=== PATIENT | male | born 1945 | race Caucasian/White ===

== ENCOUNTER → 2024-02-28 09:53 | Outpatient (REF) | payer MEDICARE, OTHER, SELFPAY | LOC: RCS 09:53 | PROVIDERS: ATTENDING PHYSICIAN Internal Medicine Cardiovascular Disease; FAMILY PHYSICIAN Physician Assistant Medical | DX: I10 Essential (primary) hypertension (principal) | CPT/HCPCS: 93306 ==

== ENCOUNTER 2024-07-31 07:33 | Day surgery (SDC) | payer MEDICARE, OTHER, SELFPAY ==
[2024-07-31] VITALS (18 sets, daily range): BP systolic 109–189; BP diastolic 46–139; BMI 23.8
[2024-07-31] MEDS: NSS 1000 IV (13:13)
--- NOTE | 2024-07-31 13:18 | ITS.CL.CATH ---
Telecom Billing Analyst - Catheterization
Cardiac Catheterization
Procedure Report:
CARDIAC CATHETERIZATION REPORT
Date of Procedure: 07/31/2024
Referring: Chino Gutierrez MD
Indication: Worsening angina with known multivessel CAD
�
HEMODYNAMIC DATA
AO: 173/62
LV: 173/12
�
LEFT VENTRICULOGRAPHY: Normal left ventricular wall motion with EF 61%
�
CORONARY ANGIOGRAPHY
Dominance: Right
Left Main: Calcified without focal stenosis
LAD: Severely calcified with mild luminal irregularities in the proximal LAD. There are tandem 60% stenoses in the mid LAD just distal to the takeoff of the first septal staff electronic warfare officer. Remainder of the LAD has mild luminal irregularities
Circumflex: The medium to large ramus intermedius branch has mild luminal disease. Focal 20% restenosis in the proximal portion of a very long stented segment extending from the proximal circumflex through the mid circumflex. There are no
high-grade areas of restenosis. Throughout the long stented segment. A small distal OM 3 is occluded at its origin and faintly fills retrograde via left to left collaterals. The circumflex terminates with a large OM 4 and a small left
posterolateral branch.
RCA: The dominant RCA is occluded at its origin. There are numerous stents throughout the RCA which do not fill with contrast. The [id number] collaterals to the RCA are faint
FloWire assessment: At the conclusion the diagnostic study, we proceeded with evaluation of the functional significance of the mid LAD disease. A 6 Argentine JL 4 guide catheter was used. Heparin was used for anticoagulation. A Freeborn wire was
advanced into the distal LAD. iFR measurements were 0.83, 0.83, and 0.83. These are all consistent with flow-limiting disease. Pullback showed the drop in Pd/Pa to be at the location of the mid LAD lesion. Accordingly, decision was made to
proceed with stenting of the LAD disease.
Angioplasty: Using the Freeborn wire, balloon angioplasty was performed with a 2.5 x 12 NC Euphora inflated to 8 rommel. We then attempted to advance a 3.25 x 15 Xience jimmy point OBINNA. The stent would not pass into the LAD. The undeployed stent was
carefully removed and a 6 Argentine guide liner was advanced into the proximal LAD. This allowed us to pass the stent to the target location in the mid LAD where it was deployed at 16 rommel then postdilated with a 3.5 NC trek to 17 rommel along the entire
length of the stent. The final angiographic result was outstanding. There were no procedural complications.
�
Closure Device: 6 Argentine Angio-Seal RFA. Of note we foolishly attempted to obtain access via the right radial artery despite there being only a faint pulse. 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 The
procedure was performed via the RFA
�
Radiation (mGy): 544
DAP (cm2.Gy): 38.0
Fluoroscopy time: 8.8 minutes
�
CONCLUSIONS
1:�Systemic hypertension
2:�Multivessel CAD as described-the RCA is chronically occluded at its origin. The mid LAD disease was flow-limiting by IFR criteria
3. Successful stenting of 60% mid LAD stenosis using 3.25 x 15 Xience jimmy point OBINNA with outstanding angiographic result
4. Recommend dual antiplatelet therapy for 12 months and continued aggressive risk factor modification efforts
5. Following transfer to the recovery room, the patient developed cognitive dysfunction. There was no motor or speech abnormality. The cognitive dysfunction resolved to baseline after approximately 60 minutes. I suspect this could be related to
the sedatives used for the procedure (Versed and fentanyl). He will be monitored overnight.
�
�
Copy to: Chino Gutierrez MD, Marlon Doty MD
�
Les Guerra MD, [facility], [facility]
[2024-07-31] MEDS: NOVOLOG vial 6 UNITS SC (13:20)
--- NOTE | 2024-07-31 13:25 | PTCARENOTE ---
Pt noted to have difficulty following commands and understanding or answering questions. MS change reported to Dr Guerra and Minerva JENKINS. Both presently at the bedside. Acucheck 253. Treated with 6 units of insulin at this time.
--- NOTE | 2024-07-31 13:29 | PTCARENOTE ---
Stroke alert called at this time after exam by Dr Guerra.
--- NOTE | 2024-07-31 13:50 | PTCARENOTE ---
Back from CT department at this time. Pt now improved to baseline. Neurologist and stroke team at the bedside
--- NOTE | 2024-07-31 13:57 | CON.NEURO4 ---
Addendum entered and electronically signed by Benigno Zamudio MD 07/31/24 17:12:
Called to return to reevaluate patient. Patient again experiencing verbal output decline with mild confusion.
Examination indicates patient is awake and alert. He is having difficulty with prolonged phrases and with continued phrase production.
Will check EEG
Initiate levetiracetam 2 g now and 1000 mg twice a day
Will continue to follow
Addendum entered and electronically signed by Benigno Zamudio MD 07/31/24 17:08:
Studies reviewed.
I have personally examined the patient. I reviewed and agree with the MARKETING COMMUNICATIONS SPECIALIST's Note.
My addenda:
Awake, alert, interactive. No acute distress.
Speech intact, initially somewhat hesitant.
Follows 2-step requests w/o difficulty. No tremor.
Extra-ocular movements grossly intact.
Facial movements full and symmetric. Hearing intact to normal conversational volume.
Normal UE movements bilaterally.
Neck: full ROM.
Chest: no dyspnea
Heart: no JVD
Ext: (-) Clubbing, (-) Cyanosis, (-) Edema
IMPRESSIONS/RECOMMENDATIONS:
Abrupt onset of change in speech and mental status following needed cardiac catheterization
Differential diagnosis includes acute ischemic stroke secondary to dislodged plaque
Check MRI of brain to better determine if acute ischemic lesion present
Continue antiplatelet agents
Goal of normotension
Continue atorvastatin
D/W patient / family / nursing
Will continue to follow patient.
Original Note:
Documented by User: Sylvia Tse NP 07/31/24 15:43
Consultation - Neurology 4
-
CONSULTING PHYSICIAN: Benigno Zamudio MD
REFERRING PHYSICIAN: Interventional Cardiology/Dr. Guerra
DICTATED BY: JASON Rashid
DATE/TIME OF REQUEST: 07/31/24
DATE/TIME OF CONSULTATION: 07/31/24
Reason for Consultation: Stroke Alert
History of Present Illness:
This is a 79-year-old right-handed male who has presented to the hospital for a scheduled cardiac cath for PCI to the LAD. Following the procedure, the patient's nurse noted around 1330 that he was unable to converse fluently, as he had been prior
to the procedure, and he seemed confused, prompting her to activate a stroke alert. CT head was obtained and is negative for any acute abnormalities. NIHSS is a 1 for mild word finding difficulty which nursing reports has improved since symptom
onset. He is not a candidate for TNK/IAT due to low NIHSS, improving symptoms. He is on DAPT with aspirin 81mg and clopidogrel 75mg daily for cardiac purposes, he was loaded with clopidogrel post-procedure. Patient denies any headache, dizziness,
vision changes, numbness, weakness, chest pain, palpitations, and shortness of breath.
Patient was previously evaluated by our inpatient Neurology service in 2018 following a cardiac cath for stenting of the mid circumflex. Post procedure in 2018 the patient was confused with word finding difficulty and diplopia. MRI brain was
obtained on 08/04/18 and demonstrated scattered bilateral cortical and white matter acute ischemic infarcts.
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
hernia
Surgical History: Cardiac cath s/p PCI to left circumflex and RCA, RTC repair, cholecystectomy, b/l cataract removal, Andrea fundoplication
Family History: Father- stroke.
Social History: Former smoker. Rare alcohol. Denies illicit drug use.
Allergies: Penicillins.
Home Medications: See below.
Review of Symptoms:
Patient denies any fever, headache, chest pain, shortness of breath, GI or symptoms.
�Per the HPI.�All systems are reviewed negative except above.
Physical Exam:
The patient is afebrile, abdomen is nondistended, breathing is unlabored, skin is warm and dry, no edema. R groin site CDI.
NIH Stroke Scale:
I performed the NIH stroke scale on the patient on 07/31/24 at 1340. The patient scored 1 points on the NIH stroke scale assessment, which were assigned as follows: See below.
Neurologic Examination:
The patient is awake, alert and oriented x 3. He is able to follow commands and answer questions appropriately. There is slight aphasia, word finding difficulty. No dysarthria. On cranial nerve assessment, pupils are 3 mm bilateral, round and
reactive to light and accommodation. Visual quintero are full. Extraocular movements are intact. Facial sensations are intact and bilaterally symmetrical, there is no facial asymmetry. Hearing is diminished bilaterally to normal conversation volume.
Tongue palate and uvula are midline. Sternocleidomastoid strengths are full bilaterally. Motor strengths are 5/5 bilateral upper and lower extremities (JOSH full ROM in RLE due to groin site) on medical research [place] scale. There is no drift or
involuntary movement noted. Babinski is absent bilaterally. There was no extinction noted on double simultaneous stimulation. Coordination is intact by finger to nose bilaterally.
Lab Results: See below.
Neuro Imaging:
1. CT Head 07/31/24: No acute intracranial pathology. Mild atrophy. Stable. ASPECT score: 10.
Differentials for the patient's presentation include:
1. Acute onset word finding difficulty and confusion. Etiology suspicious for small acute ischemic infarcts given cardiac cath/stenting this morning and similar episode following cardiac procedure in 2018 with MRI brain demonstrating acute small
embolic appearing infarcts.
Patient has the following risk factors for their symptoms: Cardiac cath/stent today, previous similar episode.
IV Tenecteplase/IAT candidacy: He is not a candidate for TNK/IAT due to low NIHSS, improving symptoms.
Recommendations:
-Continue DAPT per Cardiology.
-MRI brain noncontrast pending.
-NIHSS and neurological checks per unit guidelines.
-Provide patient with a stroke education packet.
-LDL goal <70. LDL is pending. Continue home rosuvastatin 40mg PO daily.
-Goal normoglycemia, hbA1c is pending.
-ST evaluations.
-DVT prophylaxis.
-Will follow pending results.
Discussed patient care with: Dr. Zamudio, the patient, patient's spouse
Vital Signs and Labs
-
Vital Signs and Labs:
Vital Signs
Temp Pulse Resp BP Pulse Ox
98.7 F 63 14 127/58 98
07/31/24 13:18 07/31/24 15:15 07/31/24 15:15 07/31/24 15:00 07/31/24 15:00
Medications
-
Active Medications
Generic Name Dose Route Start Last Admin
Trade Name Freq PRN Reason Stop Dose Admin
Acetaminophen 650 mg 07/31/24 12:49
Acetaminophen 325 Mg Tablet PO 08/28/24 12:48
Q4HPRN PRN
mild pain
Amlodipine Besylate 5 mg 08/01/24 08:00
Amlodipine 5 Mg Tablet PO 08/29/24 07:59
DAILY KEN
Aspirin 81 mg 08/01/24 08:00
Aspirin 81 Mg (Enteric Coated) Tablet PO 08/29/24 07:59
DAILY KEN
Clopidogrel Bisulfate 75 mg 08/01/24 08:00
Clopidogrel 75 Mg Tablet PO 08/29/24 07:59
DAILY KEN
Dextrose 12.5 grams 07/31/24 12:51
Dextrose 50% (0.5 Grams/Ml) 50 Ml Syringe IV 08/01/24 00:51
PROCEDURE-PRN PRN
glucose less than 70 mg/dL
Protocol
Dextrose 12.5 grams 07/31/24 14:50
Dextrose 50% (0.5 Grams/Ml) 50 Ml Syringe IV 08/28/24 14:49
[id number] PRN
hypoglycemia
Protocol
Famotidine 20 mg 07/31/24 20:00
Famotidine 20 Mg Tablet PO 08/28/24 19:59
BID KEN
Glucagon 1 mg 07/31/24 14:50
Glucagon 1 Mg Vial IM 08/28/24 14:49
PRN PRN
hypoglycemia
Protocol
Sodium Chloride 1,000 mls @ 0 mls/hr 07/31/24 13:00 07/31/24 13:13
Nss IV 08/01/24 12:50 1,000 mls
PER PROTOCOL KEN Administration
Protocol
Per Protocol
Insulin Aspart 0 units 07/31/24 12:51 07/31/24 13:20
Insulin Aspart (Novolog) 100 Units/1 Ml 10 Ml Vial SC 08/01/24 00:51 6 units
PROCEDURE- Q2H PRN PRN Administration
glucose 180 mg/dL or greater
Protocol
Insulin Aspart 0 units 07/31/24 16:30
Insulin Aspart Moderate Resistance 300 Units/3 Ml Pen.Injctr SC 08/28/24 16:29
AC KEN
Protocol
Metoprolol Tartrate 12.5 mg 07/31/24 20:00
Metoprolol 25 Mg Regular Release Tablet PO 08/28/24 19:59
BID KEN
Non-Formulary Medication 14 unit 07/31/24 20:00
Insulin Glargine [Lantus Solostar U-100 Insulin] SC 08/28/24 19:59
BID KEN
Non-Formulary Medication 8 unit 07/31/24 16:00
Insulin Lispro SC 08/28/24 15:59
TID KEN
Pantoprazole Sodium 40 mg 08/01/24 08:00
Pantoprazole 40 Mg Delayed Release Tablet PO 08/29/24 07:59
DAILY KEN
Ramipril 10 mg 08/01/24 08:00
Ramipril (Altace) 10 Mg Capsule PO 08/29/24 07:59
DAILY KEN
Rosuvastatin Calcium 40 mg 07/31/24 18:00
Rosuvastatin (Crestor) 40 Mg Tablet PO 08/28/24 17:59
QPM KEN
Home Medications
�Medication �Instructions �Recorded
aspirin 81 mg tablet,delayed 81 mg PO DAILY 09/08/12
release
cinnamon bark 500 mg capsule 1,000 mg PO DAILY 05/25/16
(Cinnamon)
vitamin A 2,400 mcg capsule 8,000 unit PO DAILY 10/08/16
nitroglycerin 0.4 mg sublingual 0.4 mg sublingual [id number] PRN 10/09/16
tablet chest pain ##25
pantoprazole 40 mg tablet,delayed 40 mg PO DAILY ##90 10/09/16
release
metoprolol tartrate 25 mg tablet 12.5 mg PO BID 07/31/18
amlodipine 5 mg tablet 5 mg PO DAILY #30 tabs 08/06/18
rosuvastatin 40 mg tablet 40 mg PO QPM ##30 08/06/18
acetaminophen 500 mg tablet 500 mg PO Q6HPRN PRN mild 06/10/20
(Tylenol Extra Strength) pain/fever
clopidogrel 75 mg tablet 75 mg PO DAILY #90 tabs 06/10/20
famotidine 20 mg tablet 20 mg PO BID 06/10/20
multivitamin with folic acid 400 1 tab PO DAILY 06/10/20
mcg tablet (Tab-A-Janet)
ramipril 10 mg capsule 10 mg PO DAILY 06/10/20
insulin glargine 100 unit/mL (3 14 unit SC BID 07/31/24
mL) subcutaneous pen (Lantus
Solostar U-100 Insulin)
insulin lispro 100 unit/mL 8 unit SC TID 07/31/24
subcutaneous pen
nitroglycerin 0.4 mg sublingual 0.4 mg sublingual [id number] PRN 07/31/24
tablet chest pain #25 tabs
NIH Stroke Score
Subsequent NIH Scale
Date of Subsequent NIH Scale: 07/31/24
Time of Subsequent NIH Scale: 13:40
NIH Stroke Score
Level of Consciousness: 0 - Alert
LOC Questions: 0-Answers both correctly
LOC Commands: 0-Performs both correctly
Best Horizontal Gaze: 0-Normal
Visual Quintero: 0=Normal, no visual loss
Facial Palsy: 0=Normal, symmetrical
Motor - Right Arm: 0=No drift 10 seconds
Motor - Left Arm: 0=No drift 10 seconds
Motor - Right Le-No drift 5 seconds
Motor - Left Le-No drift 5 seconds
Limb Ataxia: 0-Absent
Sensation: 0-Normal
Best Language: 1-Mild aphasia
Dysarthria: 0-Normal
Extinction and Inattention: 0-No abnormality
Total Score:: 1
Modified [place] (mRS) Score
Modified Kylie Scale (mRS): No significant disability. Able to carry out usual activities.
Score: 1
Alteplase Contraindication
Inclusion and Exclusion criteria reviewed: Yes

Documented by User: Benigno Zamudio MD 07/31/24 16:57
NIH Stroke Score
NIH Stroke Score
Total Score:: 1
Modified Kylie (mRS) Score
Score: 1
--- NOTE | 2024-07-31 13:58 | PTCARENOTE ---
Glucose checked before stroke alert. 6 units aspart given for glucose of 253 . [address] after [address] from [address] scan. Speech normal, swallowing water well without issue.
--- NOTE | 2024-07-31 14:24 | W.PN.UPDATE ---
Update Note
Progress Note Update
CTSP by RN post PCI LAD pt having difficultly with word finding and following basic commands. VSS, IMELDA, Miya4. Dr. Guerra at bedside to evaluate pt and called [facility] alert, Neurology team (Dr. Zamudio) at bedside. CT head completed no acute changes,
MRI ordered. He will be admitted o/n for observation. After 2 hours his symptoms have resolved. Continue to monitor closely.
[2024-07-31 14:35] LABS: ACT-LR - POC > 397 Seconds (116-155)
--- NOTE | 2024-07-31 16:09 | CM ---
CM following for DC planning needs.
Met w/ patient and spouse at bedside to complete initial assessment.
Pt. reports that he resides in a private, 2 story home w/ spouse. Functionally, patient is indep. at baseline w/ ADls, mobility without the use of any assisted device.
Pt. has RX plan and uses [facility] on [address]
Anticipated DC plan is for home without needs.
CM to follow.
[2024-07-31 16:22] LABS: Glucose - Point of Care 163 mg/dl (70-99)
--- NOTE | 2024-07-31 16:30 | PTCARENOTE ---
Pt noted to be confused w/ aphasia by pt's . A rapid response was called at 1618.
--- NOTE | 2024-07-31 16:37 | PTCARENOTE ---
Received pt post cath. VSS. Pr AAO x3, NIHSS 0. Attempted right radial site w/ dry dressing intact. Right groin dressing clean, dry and intact. Pt's at bedside. Orders noted.
[2024-07-31] MEDS: NOVOLOG FLEXPEN 8 UNITS SC (16:48)
[2024-07-31] MEDS: NOVOLOG FLEXPEN-MODERATE RESISTANCE 1 UNITS SC (16:49)
--- NOTE | 2024-07-31 16:59 | W.PN.UPDATE ---
Update Note
Progress Note Update
CTSP by RN, RR and stroke alert called again. Pt had return of aphasia and difficulty with word finding. Dr. Guerra and Dr. Zamudio at bedside, treated with Keppra for possible seizure activity. Plan for MRI tonight, continue to monitor closely with
frequent neuro checks. at bedside and updated plan.
[2024-07-31] MEDS: KEPPRA 2000 MG IV (17:01)
--- NOTE | 2024-07-31 17:36 | W.PN.UPDATE ---
Update Note
Progress Note Update
Second episode of speech problem post PCI. NO motor dysfunction but trouble with word finding and clear diction. Dr Zamudio reassesed with me. No role for heparin. Already on DAPT and statin. Continue to follow. CT OK but MRI to be done.
[2024-07-31] MEDS: VITAMIN B1 100 MG PO (17:45)
[2024-07-31] MEDS: CRESTOR 40 MG PO (17:45)
--- NOTE | 2024-07-31 19:21 | RR ---
A Rapid Response was called on this patient, please see Rapid Response form. A rapid response was called at 1618.
--- NOTE | 2024-07-31 19:22 | PTCARENOTE ---
Pt to MRI at 1918 via stretcher. Pt accompanied by DIANA Bautista RN.
[2024-07-31] MEDS: TYLENOL 650 MG PO (21:09)
[2024-07-31] MEDS: KEPPRA 1000 MG PO (21:10)
[2024-07-31] MEDS: PEPCID 20 MG PO (21:11)
[2024-07-31] MEDS: LOPRESSOR 12.5 MG PO (21:11)
[2024-07-31 21:25] LABS: Glucose - Point of Care 135 mg/dl (70-99)
[2024-07-31] MEDS: LANTUS 0.14 UNITS SC (21:25)
--- NOTE | 2024-07-31 23:00 | PTCARENOTE ---
Pt received at change of shift. MANUFACTURING HELPER at bedside to escort pt to MRI. Bedside handoff report completed with MANUFACTURING HELPER and RN from previous shift. Neuro assessment and NIH completed. Neuro intact, NIH scale 1. SR with bigeminy and BBB on tele. Pt
transported by MANUFACTURING HELPER to MRI and pt off tele briefly while in MRI machine. Pt back to unit at 2024. MANUFACTURING HELPER reported no issues during transport. At 2099 pt w/ complaints of a headache, Tylenol administered per orders. Pt reported tylenol resolved
headache pain completely. Aphasia and confusion completely resolved since returning from MRI. Pt ambulating with standby assist to bathroom. Can make needs known. Call yuan within reach.
[2024-08-01 03:49] VITALS: BP 151/74
[2024-08-01 04:21] LABS: Hematocrit 40.6 % (39.0-52.0); Hemoglobin 14.5 g/dL (13.0-18.0); Mean Corp Hgb Conc. 35.7 g/dL (33.0-37.0); Mean Corpuscular Hgb 32.4 pg (27.0-31.0); Mean Corpuscular Volume 90.8 fL (80.0-94.0); Mean Platelet Volume 11.2 fL (7.4-10.4); Platelet Count 144 10^3/uL (130-400); Red Blood Cell Count 4.47 10^6/uL (4.70-6.10); Red Cell Dist. Width 13.2 % (11.5-14.5); White Blood Cell Count 6.7 10^3/uL (4.8-10.8)
[2024-08-01 04:30] LABS: Blood Urea Nitrogen 15 mg/dl (9-20); Calcium 9.4 mg/dl (8.4-10.2); Carbon Dioxide 27 mmol/L (22-30); Chloride 100 mmol/L (98-107); Estimated Creatinine Clearance 68 ml/min; Glucose 150 mg/dl (70-99); HDL Cholesterol 41 mg/dl; LDL Cholesterol, Calculated 36 mg/dl; Potassium 4.3 mmol/L (3.5-5.1); Sodium 138 mmol/L (135-145); Total Cholesterol 98 mg/dl (50-199); Triglyceride 105 mg/dl (10-149); Very Low Density Lipoprotein 21 mg/dl (0-30); eGFR > 60.00
[2024-08-01 05:49] LABS: Magnesium 2.2 mg/dl (1.6-2.3)
[2024-08-01 06:00] VITALS: BMI 22.9
[2024-08-01 07:25] VITALS: BP 154/74
[2024-08-01 07:28] LABS: Glucose - Point of Care 174 mg/dl (70-99)
[2024-08-01] MEDS: NOVOLOG FLEXPEN 8 UNITS SC (08:25)
[2024-08-01] MEDS: NOVOLOG FLEXPEN-MODERATE RESISTANCE 1 UNITS SC (08:25)
[2024-08-01] MEDS: NORVASC 5 MG PO (08:26)
[2024-08-01] MEDS: PEPCID 20 MG PO (08:26)
[2024-08-01] MEDS: LOPRESSOR 12.5 MG PO (08:26)
[2024-08-01] MEDS: PROTONIX 40 MG PO (08:26)
[2024-08-01] MEDS: KEPPRA 1000 MG PO (08:26)
[2024-08-01] MEDS: PLAVIX 75 MG PO (08:26)
[2024-08-01] MEDS: ALTACE 10 MG PO (08:26)
[2024-08-01] MEDS: ASPIR LOW (ENTERIC COATED) 81 MG PO (08:26)
[2024-08-01] MEDS: VITAMIN B1 100 MG PO (08:26)
[2024-08-01] MEDS: LANTUS 0.14 UNITS SC (08:27)
--- NOTE | 2024-08-01 09:27 | W.PN.NEURO.1 ---
Today's Communication / Plan
-
would change from Levetiracetam to Topiramate 25 mg BID based on symptoms and lack of clarity regarding seizure
eventual outpatient EEG
continue aspirin and clopidogrel as outpatient
Neuro Assessment/Plan
Assessment
Acute onset of confusion
Differential diagnosis includes migraine with aura based on routine headaches.
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
Plan
would change from Levetiracetam to Topiramate 25 mg BID based on symptoms and lack of clarity regarding seizure
eventual outpatient EEG
continue aspirin and clopidogrel as outpatient
Will follow as outpatient.
Subjective/Objective
Subjective Data
Date of Service: August 01, 2024
Had headache at 21:00 yesterday. Has usual photophobia and trouble with visual changes.
Objective Data
Vital Signs
Temp Pulse Resp BP Pulse Ox
36.7 C 60 18 151/74 98
08/01/24 07:20 08/01/24 04:00 08/01/24 07:20 08/01/24 03:49 08/01/24 07:20
Lab Results
08/01/24 03:47
08/01/24 03:47
Sodium 138 mmol/L (135-145) 08/01/24 03:47
Potassium 4.3 mmol/L (3.5-5.1) 08/01/24 03:47
BUN 15 mg/dl (9-20) 08/01/24 03:47
Glucose 150 mg/dl (70-99) H 08/01/24 03:47
Calcium 9.4 mg/dl (8.4-10.2) 08/01/24 03:47
LDL Cholesterol, Calc 36 mg/dl 08/01/24 03:47
Patient Allergies
Penicillins Allergy (Verified 07/31/24 08:14)
Hives
Review of Systems
-
History Source: Patient
All other systems: Reviewed and negative
Neuro: Headache; Negative Dizzy
Physical Exam
-
General: No Apparent Distress and Appears Stated Age
Eyes: Round OU, [place] Conjunctivae and No Ptosis
HEENT: Anicteric and Moist Mucous Membranes
Neck: Full Range of Motion
Respiratory: No Dyspnea
Cardiac: No JVD
GI: Non-distended
Skin: Unremarkable
Extremities: No Clubbing, No Cyanosis and No Edema
Psych: Intact Judgement/Insight
Extended Neurological Exam
Mood & Affect: Mood Unremarkable and Affect Unremarkable
Attention Span & Concentration: Awake, Alert and Interactive
Memory: Unremarkable
Tremor: Hand Tremor Absent and Head Tremor Absent
Speech: Quality Unremarkable and Quantity Unremarkable
Cranial Nerve II: Left Eye: Pupillary Size Unremarkable and Visual Quintero Grossly Intact
Cranial Nerve II: Right Eye: Pupillary Size Unremarkable and Visual Quintero Grossly Intact
Cranial Nerves III, IV, : Extraocular Movement: Grossly Intact
Cranial Nerve VII: Facial Symmetry: Normal Facial Symmetry
Cranial Nerve VIII: Hearing: Unremarkable Hearing to Normal Conversational Volume
Cranial Nerve XI: Shoulder Shrug: Unremarkable
Muscle Strength, Overall: Spontaneously Moves (All extremities)
Muscle Bulk & Tone: Bulk Unremarkable and Tone Unremarkable
Touch Sensation: Unremarkable
Coordination: [id number] Testing Unremarkable
Data Reviewed
-
MRI Head: Report Reviewed and Image Reviewed
EEG: Ordered
Labs: Report Reviewed
Reviewed with: Physician, Patient and Family
Old Records: Summarized
Past History
Past History
ED Past Medical History: CAD, GERD, HTN, Hypercholesterolemia, NIDDM, Other (Lumbar disc disease with sciatica, episode change in mental status) and Other (vertigo x 2)
ED Past Surgical History: Cholecystectomy, Orthopedic (Right rotator cuff repair, epidural steroid injections to lumbar region ) and Other (Hiatal hernia repair. insulin pump placement, tympanic tube placements AU)
Social History
Tobacco: Non-smoker
Drug: None
Personal:
Living: with family
Family History
Family History: Other (reviewed and noncontributory)
Medications
-
Medications:
Generic Name Dose Route Start Last Admin
Trade Name Freq PRN Reason Stop Dose Admin
Acetaminophen 650 mg 07/31/24 12:49 07/31/24 21:09
Acetaminophen 325 Mg Tablet PO 08/28/24 12:48 650 mg
Q4HPRN PRN Administration
mild pain
Amlodipine Besylate 5 mg 08/01/24 08:00 08/01/24 08:26
Amlodipine 5 Mg Tablet PO 08/29/24 07:59 5 mg
DAILY KEN Administration
Aspirin 81 mg 08/01/24 08:00 08/01/24 08:26
Aspirin 81 Mg (Enteric Coated) Tablet PO 08/29/24 07:59 81 mg
DAILY KEN Administration
Clopidogrel Bisulfate 75 mg 08/01/24 08:00 08/01/24 08:26
Clopidogrel 75 Mg Tablet PO 08/29/24 07:59 75 mg
DAILY KEN Administration
Dextrose 12.5 grams 07/31/24 14:50
Dextrose 50% (0.5 Grams/Ml) 50 Ml Syringe IV 08/28/24 14:49
[id number] PRN
hypoglycemia
Protocol
Famotidine 20 mg 07/31/24 20:00 08/01/24 08:26
Famotidine 20 Mg Tablet PO 08/28/24 19:59 20 mg
BID KEN Administration
Glucagon 1 mg 07/31/24 14:50
Glucagon 1 Mg Vial IM 08/28/24 14:49
PRN PRN
hypoglycemia
Protocol
Sodium Chloride 1,000 mls @ 0 mls/hr 07/31/24 13:00 07/31/24 13:13
Nss IV 08/01/24 12:50 1,000 mls
PER PROTOCOL KEN Administration
Protocol
Per Protocol
Insulin Glargine 14 units/ 0.14 mls @ 0 mls/hr 07/31/24 20:00 08/01/24 08:27
Device SC 08/28/24 19:59 0.14 mls
BID KEN Administration
As Directed
Insulin Aspart 0 units 07/31/24 16:30 08/01/24 08:25
Insulin Aspart Moderate Resistance 300 Units/3 Ml Pen.Injctr SC 08/28/24 16:29 1 units
AC KEN Administration
Protocol
Insulin Aspart 8 units 07/31/24 16:30 08/01/24 08:25
Insulin Aspart (100 Units/Ml) 3 Ml Flexpen SC 08/28/24 16:29 8 units
AC KEN Administration
Levetiracetam 1,000 mg 07/31/24 20:00 08/01/24 08:26
Levetiracetam 500 Mg Regular Release Tablet PO 08/28/24 19:59 1,000 mg
BID KEN Administration
Metoprolol Tartrate 12.5 mg 07/31/24 20:00 08/01/24 08:26
Metoprolol 12.5 Mg Regular Release Dose (1/2 Of 25 Mg Tablet) PO 08/28/24 19:59 12.5 mg
BID KEN Administration
Pantoprazole Sodium 40 mg 08/01/24 08:00 08/01/24 08:26
Pantoprazole 40 Mg Delayed Release Tablet PO 08/29/24 07:59 40 mg
DAILY KEN Administration
Ramipril 10 mg 08/01/24 08:00 08/01/24 08:26
Ramipril (Altace) 10 Mg Capsule PO 08/29/24 07:59 10 mg
DAILY KEN Administration
Rosuvastatin Calcium 40 mg 07/31/24 18:00 07/31/24 17:45
Rosuvastatin (Crestor) 40 Mg Tablet PO 08/28/24 17:59 40 mg
QPM KEN Administration
Sodium Chloride 0 flush 07/31/24 16:00
Sodium Chloride 0.9% (Flush) Syringe IV 08/28/24 15:59
PER PROTOCOL KEN
Thiamine HCl 100 mg 07/31/24 17:00 08/01/24 08:26
Thiamine 100 Mg Tablet PO 08/02/24 08:01 100 mg
DAILY KEN Administration
--- NOTE | 2024-08-01 09:51 | W.PN.UPDATE ---
Addendum entered and electronically signed by Rylan Domingo MD 08/01/24 10:07:
Dr. Zamudio communicated with me and he feels not seizure. He suspects migraine with aura. Outpatient EEG is planned.
Original Note:
Update Note
Progress Note Update
Patient seen and examined. Case discussed with Dr. Guerra and Dr. Zamudio. Neurologically now intact. Dr. Zamudio prefers to continue antiseizure medication. He will arrange for outpatient follow-up. Cardiology follow-up arranged. Cardiac
catheterization site good. Telemetry good. MRI negative. Home today. 40 minutes spent on hospital discharge process today by me.
--- NOTE | 2024-08-01 09:58 | W.DS.TRANS ---
DC Summary - [employer]
-
Discharge Instructions:
Discharge Diagnosis/Procedures Angioplasty with stent to LAD
Diet Low Cholesterol,Diabetic, Carb Controlled
Driving Restrictions No driving for 24 hours
Other Services Cardiac Rehab
Instructions:
Stand-Alone Forms: DC Inst - Same Day PCI
Changes to Home Medications: Yes
Discharge Medications:
DC Medications w/original date entered in [facility]
aspirin 81 mg tablet,delayed release 81 mg PO DAILY 09/08/12
cinnamon bark 500 mg capsule (Cinnamon) 1,000 mg PO DAILY 05/25/16
vitamin A 2,400 mcg capsule 8,000 unit PO DAILY 10/08/16
nitroglycerin 0.4 mg sublingual tablet 0.4 mg sublingual [id number] PRN chest pain ##25 10/09/16
pantoprazole 40 mg tablet,delayed release 40 mg PO DAILY ##90 10/09/16
metoprolol tartrate 25 mg tablet 12.5 mg PO BID 07/31/18
amlodipine 5 mg tablet 5 mg PO DAILY #30 tabs 08/06/18
rosuvastatin 40 mg tablet 40 mg PO QPM ##30 08/06/18
acetaminophen 500 mg tablet (Tylenol Extra Strength) 500 mg PO Q6HPRN PRN mild pain/fever 06/10/20
clopidogrel 75 mg tablet 75 mg PO DAILY #90 tabs 06/10/20
famotidine 20 mg tablet 20 mg PO BID 06/10/20
multivitamin with folic acid 400 mcg tablet (Tab-A-Janet) 1 tab PO DAILY 06/10/20
ramipril 10 mg capsule 10 mg PO DAILY 06/10/20
insulin glargine 100 unit/mL (3 mL) subcutaneous pen (Lantus Solostar U-100 Insulin) 14 unit SC BID 07/31/24
insulin lispro 100 unit/mL subcutaneous pen 8 unit SC TID 07/31/24
nitroglycerin 0.4 mg sublingual tablet 0.4 mg sublingual [id number] PRN chest pain #25 tabs 07/31/24
topiramate 25 mg tablet 25 mg PO BID #60 tabs 08/01/24
Home Medication Changes
New Topamax (topiramate) as above
Pending Results: No
Total time spent discharging patient (in min): 40
--- NOTE | 2024-08-01 11:17 | PTOTSP ---
SPEECH THERAPY SWALLOW EVALUATION:
Patient exhibits grossly functional oropharyngeal swallow function at this time. No signs concerning for aspiration at this time. Recommending continue Regular texture solids, thin liquids. Medications whole with liquid as best tolerated. General
aspiration and Reflux precautions. Informal assessment of speech/language/cognitive communication skills during swallow evaluation was grossly within functional limits. No overt word finding difficulties at this time. No dysarthria. Pt endorsed mild
STM/word finding difficulties at baseline. Pt and reporting pt is '100%' back at baseline level of speech/language skills at this time. MRI currently negative for acute intracranial abnormality. Given this, suspect pt is at baseline level of
functioning. Skilled ST services are not indicated at this time. Should pt exhibit new or worsening speech/language/cognitive communication or swallowing difficulties, please contact ST for re-assessment.
RECOMMEND:
1) Regular texture solids, thin liquids
2) Medications whole with liquid as best tolerated
3) General aspiration and Reflux precautions
4) No skilled ST services are indicated at this time; ST to sign off
== END 2024-08-01 11:15 | disposition home or self-care (01) ==
LOC: CATH 07:33
PROVIDERS: Nurse Practitioner Adult Health; ATTENDING PHYSICIAN Internal Medicine Cardiovascular Disease; CONSULT PHYSICIAN Psychiatry & Neurology Neurology; FAMILY PHYSICIAN Family Medicine; OTHER PHYSICIAN Internal Medicine Cardiovascular Disease
DX: I25.110 Atherosclerotic heart disease of native coronary artery with unstable angina pectoris (principal); R41.89 Other symptoms and signs involving cognitive functions and awareness; I10 Essential (primary) hypertension; R41.0 Disorientation, unspecified; Z86.73 Personal history of transient ischemic attack (TIA), and cerebral infarction without residual deficits; E11.42 Type 2 diabetes mellitus with diabetic polyneuropathy; E78.00 Pure hypercholesterolemia, unspecified; I45.10 Unspecified right bundle-branch block; I49.1 Atrial premature depolarization; K21.9 Gastro-esophageal reflux disease without esophagitis; R47.01 Aphasia; Z79.4 Long term (current) use of insulin; Z79.899 Other long term (current) drug therapy; Z79.02 Long term (current) use of antithrombotics/antiplatelets; Z79.82 Long term (current) use of aspirin; Z95.5 Presence of coronary angioplasty implant and graft
CPT/HCPCS: 70450; 70551; 80048; 80061; 82962; 83036; 83735; 85027; 85347; 92610; 93005; 93458; 93799; C1725; C1760; C1769; C1874; C1894; C9600; Q9967

== ENCOUNTER → 2024-11-06 11:43 | Outpatient (REF) | payer MEDICARE, OTHER, SELFPAY | LOC: PAVMRI 11:43 | PROVIDERS: ATTENDING PHYSICIAN Psychiatry & Neurology Neurology; FAMILY PHYSICIAN Family Medicine | DX: G93.40 Encephalopathy, unspecified (principal); I63.81 Other cerebral infarction due to occlusion or stenosis of small artery | CPT/HCPCS: 70544; 70549; A9585 ==